=== PATIENT | male | born 1945 | race Caucasian/White ===

== ENCOUNTER 2016-07-28 10:16 | Outpatient (CLI) | payer MEDICARE, OTHER ==
[2016-07-28 11:22] LABS: Anion Gap 14 mmol/L (10-20); BUN (Urea Nitrogen) 39 mg/dL (8.4-25.7); Calc. Creatinine Clearance 0 mL/min (70-130); Calcium 8.6 mg/dL (7.8-10.44); Carbon Dioxide 30 mmol/L (23-31); Chloride 101 mmol/L (98-107); Estimated GFR-MDRD 68; Glucose 224 mg/dL (83-110); Potassium 3.4 mmol/L (3.5-5.1); Sodium 142 mmol/L (136-145)
== END 2016-07-28 10:17 | disposition home or self-care (01) ==
LOC: MADLAB 10:16
PROVIDERS: ATTEND Internal Medicine Cardiovascular Disease
DX: I31.3 Pericardial effusion (noninflammatory) (principal)
CPT/HCPCS: 36415; 80048

== ENCOUNTER 2016-07-29 19:48 | Emergency (ER) | payer MEDICARE, OTHER ==
[~2016-07-29 19:48] MED LIST: Sterile Water Irrigation 1,000 ML BOT ONE
== END 2016-07-29 21:35 | disposition home or self-care (01) ==
LOC: MADERS 19:48
DX: Z46.6 Encounter for fitting and adjustment of urinary device (principal); I10 Essential (primary) hypertension; Z87.891 Personal history of nicotine dependence; Z79.82 Long term (current) use of aspirin; Z79.899 Other long term (current) drug therapy
CPT/HCPCS: 51702; A4217

== ENCOUNTER 2016-07-30 15:14 | Emergency (ER) | payer MEDICARE, OTHER ==
[~2016-07-30 15:14] MED LIST changes: +Iopamidol 370 76% 100 ML VIAL ONE; -Sterile Water Irrigation 1,000 ML BOT ONE; +Sterile Water Irrigation 250 ML BOT ONE
[2016-07-30 15:55] LABS: Bilirubin Negative (Negative); Blood, Urine Large (Negative); Clarity Clear (Clear); Glucose, Urine (Dipstick) Negative (Negative); Leukocyte Large (Negative); Nitrite Negative (Negative); Protein, Urine (Dipstick) Negative (Neg-Trace); Urobilinogen 0.2 mg/dL (0.2-1.0)
[2016-07-30 16:00] LABS: Bacteria/HPF 1+ HPF (None Seen); Squamous Epithelial 0-3 HPF (0-3); WBC/HPF 21-50 HPF (0-3)
[2016-07-30] MEDS ORDERED: Fentanyl 100 MCG/2 ML VIAL ONE (16:07)
[2016-07-30 16:25] LABS: ALT (SGPT) 26 U/L (0-55); AST (SGOT) 11 U/L (5-34); Albumin 3.3 g/dL (3.4-4.8); Alkaline Phosphatase 66 U/L (40-150); Anion Gap 12 mmol/L (10-20); BUN (Urea Nitrogen) 24 mg/dL (8.4-25.7); Bilirubin, Total 0.9 mg/dL (0.2-1.2); CK (CPK) 31 U/L (30-200); Calc. Creatinine Clearance 0 mL/min (70-130); Calcium 9.1 mg/dL (7.8-10.44); Carbon Dioxide 30 mmol/L (23-31); Chloride 101 mmol/L (98-107); Estimated GFR-MDRD Greater than 90; Globulin 2.5 g/dL (2.4-3.5); Glucose 136 mg/dL (83-110); Lipase 28 U/L (8-78); Potassium 3.8 mmol/L (3.5-5.1); Protein, Total 5.8 g/dL (5.8-8.1); Sodium 139 mmol/L (136-145)
[2016-07-30 16:40] LABS: #Lymphocytes 0.5 thou/uL (1.20-3.40); #Monocytes 0.1 thou/uL (0.11-0.59); #Neutrophils 4.1 thou/uL (1.40-6.50); %Basophils 0.6 % (0.0-1.0); %Eosinophils 0.1 % (0.0-10.0); %Lymphocytes 9.6 % (21.0-51.0); %Monocytes 2.9 % (0.0-10.0); %Neutrophils 86.9 % (42.0-75.0); Hemoglobin 17.3 g/dL (14.0-18.0); Mean Corpuscular HGB CONC 34.6 g/dL (32.0-36.0); Mean Corpuscular Hemoglobin 32.9 pg (27.0-31.0); Mean Platelet Volume 6.4 fL (7.4-10.4); PLT Morphology Comment Appears Decreased; Platelet Count 93 thou/uL (130-400); RBC Distribution Width 12.7 % (11.5-14.5); Red Blood Cell (RBC) Count 5.26 mill/uL (4.70-6.10); White Blood Cell (WBC) Count 4.7 thou/uL (4.8-10.8)
--- NOTE | 2016-07-30 17:42 | CT ---
CONTRAST ENHANCED CT IMAGES ABDOMEN AND PELVIS 07/30/16 HISTORY: Abdominal pain. Contrast enhanced CT images of the abdomen and pelvis obtained after administration of IV contrast. There is an area of mass-like density in the posterior aspect of the right lower lobe previously see n on patient's CT from 04/07/16. The liver contains some hypodense lesions previously noted. These are multiple and have not signific antly changed. The spleen is unremarkable. The pericardial effusion noted previously is decreased. T he pancreas and gallbladder, adrenal glands, and kidneys are unremarkable. Peripelvic cyst seen in t he right kidney. There is a ventriculoperitoneal shunt in place. There is an indwelling Sierra cathet er seen. Extensive colonic diverticulosis is seen. There appears to be some chronic thickening of so me of the small bowel loops adjacent to the [employer] shunt. There is mild aneurysmal dilatation of the inf rarenal abdominal aorta measuring up to 2.9 x 2.7 cm in the abdominal aorta at the takeoff of the IM A. In the left lower quadrant where there is extensive diverticulosis noted, there does appear to be so me fat stranding surrounding the sigmoid colon. This may represent some component of diverticulitis in addition to the diverticulosis. No definite evidence of an abscess seen. IMPRESSION: 1. Diverticulosis seen extensively in the descending and sigmoid colon. 2. There may be some inflammatory change surrounding the sigmoid colon possibly representing ch anges of diverticulitis. 3. Continued presence of soft tissue mass in the posterior aspect of the right lower lobe of th e lung concerning for malignancy. 4. Mild aneurysmal dilatation in the infrarenal abdominal aorta. POS: [facility]
[2016-07-30] MEDS ORDERED: Ketorolac Tromethamine 30 MG/ML VIAL ONE (17:48)
== END 2016-07-30 18:15 | disposition home or self-care (01) ==
LOC: MADERS 15:14
DX: K57.92 Diverticulitis of intestine, part unspecified, without perforation or abscess without bleeding (principal); N39.0 Urinary tract infection, site not specified; Z87.891 Personal history of nicotine dependence; Z79.82 Long term (current) use of aspirin; Z79.899 Other long term (current) drug therapy
CPT/HCPCS: 74177; 80053; 81003; 81015; 82550; 83690; 85025; 87077; 87086; 87186; 96374; 96375; 96376; J1885; J3010

== ENCOUNTER 2016-07-31 08:22 | Observation (INO) | payer MEDICARE, OTHER ==
[2016-07-31] MEDS ORDERED: Ketorolac Tromethamine 60 MG/2 ML VIAL ONE (08:35)
[2016-07-31] MEDS ORDERED: HYDROcodone/Acetaminophen 10/325 mg Tablet ONE (08:35)
[2016-07-31] MEDS ORDERED: Cipro 250 MG TAB ONE (09:10)
[2016-07-31] MEDS ORDERED: Ciprofloxacin 500 MG TAB ONE (09:10)
[2016-07-31] MEDS ORDERED: metroNIDAZOLE 250 MG TAB ONE (09:10)
[2016-07-31] MEDS ORDERED: Iopamidol 370 76% 100 ML VIAL ONE (10:08)
[2016-07-31 14:32] VITALS: BMI 30.2
[2016-07-31] MEDS ORDERED: HYDROcodone/Acetaminophen 10/325 mg Tablet PO PRN ×2 (15:26→17:10)
[2016-07-31] MEDS ORDERED: Ventolin HFA Inhaler 60 PUFF INHALER INH PRN (16:30)
[2016-07-31] MEDS ORDERED: Acetaminophen 325 MG TAB PO PRN (16:55)
[2016-07-31] MEDS ORDERED: Ondansetron ODT 4 MG TAB PO PRN (16:55)
[2016-07-31] MEDS ORDERED: metroNIDAZOLE 500 MG in Premix Bag 1 BAG IVPB SCH (17:00)
[2016-07-31] MEDS ORDERED: Ketorolac Tromethamine 30 MG/ML VIAL IVP PRN (17:08)
[2016-07-31] MEDS ORDERED: Mag-Al Plus 1200 MG/1200 MG/120 MG/30 ML UDCUP PO PRN ×2 (17:09→19:51)
[2016-07-31] MEDS ORDERED: Sodium Chloride 0.9% 1,000 ML IV SCH (17:15)
[2016-07-31] MEDS ORDERED: Morphine Sulfate 2 MG/ML SYRINGE ONE ×2 (20:30→21:38)
[2016-07-31 20:32] VITALS: BP 119/77; TEMP 99.4
[2016-07-31] MEDS ORDERED: Morphine Sulfate 2 MG/ML SYRINGE SLOW IVP SCH ×2 (20:45→21:45)
[2016-07-31] MEDS ORDERED: Senokot S 8.6-50 MG TAB PO SCH (21:00)
[2016-07-31] MEDS ORDERED: Dutasteride 0.5 MG CAP PO SCH (21:00)
[2016-07-31] MEDS ORDERED: Silodosin 8 MG CAP PO SCH (21:00)
--- NOTE | 2016-07-31 21:51 | CT ---
CONTRAST ENHANCED CT IMAGES ABDOMEN AND PELVIS 07/31/16 History: Abdominal pain. Comparison made to previous exam from 07/30/16. There is a developing small left sided pleural effusion. There is some areas of air space opacity or density in the medial aspect of the right lower lobe again seen. There is interval development of a large amount of free intraperitoneal air which was not present pr eviously. There is also interval development of some small amounts of free fluid in the right and lo wer pelvis. There is abnormal dilatation and enhancement of the proximal and mid small bowel loops. This may represent inflammatory process. Findings discussed with Dr. Christina Salgado at 8:54 p.m. on 07/31/16. Code CR POS: [facility]
--- NOTE | 2016-08-01 00:01 | HP ---
DATE OF ADMISSION: 07/31/2016 ATTENDING PHYSICIAN: Christina Salgado D.O. PRIMARY CARE PHYSICIAN: Dr. Ashley Alvarado. CHIEF COMPLAINT: Abdominal pain. HISTORY OF PRESENT ILLNESS: This is a pleasant 71-year-old male with history of nonsmall cell lung cancer with known brain metastases and hydrocephalus status post ventricular shunt as well as hypertension, BPH with urinary retention and indwelling Sierra. He was seen today in the emergency room for complaint of abdominal pain. The patient reports the symptoms started earlier this week. The patient was initially seen in the ER on 07/29/2016 for complaint of clogged Sierra catheter. The patient's Sierra catheter was changed in the emergency room by Dr. Pozo and patient was discharged home with a scheduled urology followup. In the interim, the patient woke up on 07/30/2016 complaining of left lower quadrant abdominal pain that was sharp in nature. CT abdomen was done and revealed diverticulosis extensively in the descending and sigmoid colon as well as fat stranding and inflammatory changes of the sigmoid colon suggestive of diverticulitis. CBC was significant for a left shift, but with overall white blood cell count of 4.7. The patient was afebrile and deemed appropriate for outpatient management and therefore discharged home with ciprofloxacin and Flagyl which he started last night as well as Tylenol #3 for pain control. The patient states today that he went home last night with no further abdominal pain until he woke up this morning and reports the pain returned and was not alleviated with the tylenol #3 so returned to the ER. The patient states today he still has not had any fever or difficulty with vomiting or voiding, but does continue with the pain that is worse with movement. He has been tolerating diet and has been supplementing his diet with protein milk shakes. I was called from the emergency room physician for observation admission for failed outpatient treatment of diverticulitis. The patient is undergoing cancer treatment for his lung cancer as well as most recent treatment of his brain metastases and resulting hydrocephalus. He is currently under the care of Dr. Campoverde as his oncologist, Dr. Mead as his radiation oncologist, Dr. Alvarado, his primary care physician whom he saw 2 days ago for unrelated issues. Dr. Cardoza, urologist that he has been following for the urinary retention and Sierra management. The patient has no other complaints at this time. He has been given Toradol IM in the ER this AM and reports his pain is significantly improved. PAST MEDICAL HISTORY: 1. Nonsmall cell lung cancer with brain metastases. 2. Hypertension. 3. Brain metastases with resulting hydrocephalus status post ventricular shunt. 4. Benign prostatic hyperplasia with urinary retention requiring indwelling Sierra catheter. PAST SURGICAL HISTORY: Ventricular shunt was placed in May 2016. MEDICATIONS: 1. Aspirin 81 mg once daily. 2. Tylenol with codeine 300/30 mg 1 tab every 6 hours as needed. 3. ProAir 2 puffs inhaled every 6 hours as needed. 4. Ciprofloxacin 500 mg twice daily. 5. Dutasteride 0.5 mg once nightly. 6. Fish oil 2 tablets p.o. daily 1000 mg capsule. 7. Flonase 2 sprays each nostril daily. 8. Furosemide 40 mg p.o. daily. 9. Metronidazole 500 mg q.8 hours. 10. Omeprazole 20 mg once daily. 11. Zofran 8 mg every 8 hours as needed. 12. Sennoside docusate 1 tablet twice daily. 13. Rapaflo 8 mg capsule once nightly. 14. Anoro Ellipta 62.5/25 mcg one puff inhaled daily. 15. Valsartan/hydrochlorothiazide 160/12.5 mg one p.o. daily. ALLERGIES: Patient is allergic to PENICILLIN. FAMILY HISTORY: Noncontributory. SOCIAL HISTORY: The patient lives at home with his . He is in the process of putting together his advanced directives. He has discussed this with his and would like to remain full code at this time. He is not currently working. He is retired. He no longer smokes. He quit in 1993. Does not drink alcohol or use illicit drug use. REVIEW OF SYSTEMS: GENERAL: Denies any fever, chills, nausea, vomiting, weight gain, or weight loss. HEENT: Denies any headache, otalgia, sore throat, rhinorrhea, blurry vision. CARDIOVASCULAR: Denies any chest pain, shortness of breath or swelling in his legs, palpitations. RESPIRATORY: Denies any shortness of breath. Positive for occasional cough and hoarseness that is chronic for him. Denies any hemoptysis. GASTROINTESTINAL: Positive for abdominal pain. Denies any nausea or vomiting. Positive for infrequent loose stools. Denies any bloody stools. GENITOURINARY: Positive for urinary retention that is related with his catheter. Denies any dysuria. MUSCULOSKELETAL: Denies any myalgias, joint pain, or joint swelling. ENDOCRINOLOGIC: Denies any easy bruising or easy bleeding. NEUROLOGIC: Denies any syncope or seizures. PHYSICAL EXAMINATION: VITAL SIGNS: Temperature is 97.2, pulse is 86, respirations 20, O2 saturations 96% on room air, blood pressure is 108/56. GENERAL: The patient is alert and oriented x3. He is in no acute distress. He is cooperative. He is answering questions appropriately. He is resting comfortably in the bed at this time after pain medication that was administered in the ER. HEENT: Normocephalic and atraumatic, Pupils are equally round and reactive to light. Extraocular movements are intact. Oropharynx is moist without erythema or exudates. NECK: Supple without thyromegaly or lymphadenopathy. CARDIOVASCULAR: Heart is regular rate and rhythm with no murmurs. RESPIRATIONS: Positive for mildly diminished aeration bilaterally. Negative for any distress, wheezing, rales or rhonchi. GASTROINTESTINAL: Positive for mild distension of the abdomen. Positive for left lower quadrant tenderness to palpation. Negative for rebound or guarding. ABDOMEN: Positive for bowel sounds in all 4 quadrants. GENITOURINARY: Sierra catheter appreciated in place. MUSCULOSKELETAL: Strength is 5/5 in all four extremities. EXTREMITIES: Negative for clubbing, cyanosis or edema. NEUROLOGIC: Nonfocal exam. The patient was not found to have any focal deficits. LABORATORY AND IMAGING DATA: On 07/30/2016, CBC was significant for white blood cell count of 4.7, hemoglobin 17.3, hematocrit 49.9, platelets 93, neutrophils 86.9. CMP, sodium is 139, potassium 3.8, chloride 101, bicarbonate 30, BUN 24, creatinine 0.81, glucose is 136, total bilirubin 0.9, AST 11, ALT is 26, alkaline phosphatase 66, albumin is low at 3.3. Lipase is normal at 28. Urinalysis significant for large blood, which is chronic for him, large leukocyte esterase. CT scan done on 07/30/2016 shows diverticulosis extensively in the descending and sigmoid colon as well as inflammatory changes around the sigmoid colon possibly representing changes of diverticulitis, incidental finding of soft tissue mass in the posterior aspect of the right lower lobe concerning for malignancy which is known for patient as well as mild aneurysmal dilatation of the infrarenal abdominal aorta. ASSESSMENT AND PLAN: This is a 71-year-old male with recent diagnosis of acute diverticulitis of the sigmoid colon that has failed outpatient management. The patient has remained afebrile and is quite comfortable after toradol given in the ER. We will admit for observation and advance his pain regimen with [place] every 6 hours as needed which he did well with in the ER yesterday. He will be started on IV antibiotics with Cipro and Flagyl to be continued until patient has had improvement in his pain. He has been given a liquid diet for now and we will advance this as tolerated. His home medications have been continued. Lengthy discussion was had with the patient and in the ER that if he has any signs of worsening abdominal pain or treatment failure then we will transfer to [facility]. The patient and his does prefer to stay here in [place]. Anticipate discharge in less than 48 hours with anticipate continued course of antibiotics and GI/PCP outpatient follow up. Code status is FULL per patient and wishes. DVT prophylaxis with SCDs. MTDD
[2016-08-01] MEDS ORDERED: Fish Oil 1,000 MG CAP PO SCH (09:00)
[2016-08-01] MEDS ORDERED: Aspirin 81 mg Enteric Coated Tablet PO SCH (09:00)
[2016-08-01] MEDS ORDERED: Non-Formulary Item 1 EACH (Valsartan/Hydrochlorothiazide [Valsartan-Hctz 160-12.5 Mg Tab] PO SCH (09:00)
[2016-08-01] MEDS ORDERED: VILANTEROL INH SCH (09:00)
[2016-08-01] MEDS ORDERED: Valsartan 80 MG TAB PO SCH (09:00)
[2016-08-01] MEDS ORDERED: Hydrochlorothiazide 25 MG TAB PO SCH (09:00)
[2016-08-01] MEDS ORDERED: Furosemide 40 MG TAB PO SCH (09:00)
[2016-08-01] MEDS ORDERED: UMECLIDINIUM INH SCH (09:00)
== END 2016-07-31 21:40 | disposition short-term general hospital (02) ==
LOC: MADERS 08:22 → MADMS 14:16
PROVIDERS: ADMIT Family Medicine; ATTEND Family Medicine
DX: K57.32 Diverticulitis of large intestine without perforation or abscess without bleeding (principal); C34.90 Malignant neoplasm of unspecified part of unspecified bronchus or lung; C79.31 Secondary malignant neoplasm of brain; G91.8 Other hydrocephalus; Z98.2 Presence of cerebrospinal fluid drainage device; N40.1 Benign prostatic hyperplasia with lower urinary tract symptoms; R33.8 Other retention of urine; Z79.82 Long term (current) use of aspirin; Z79.899 Other long term (current) drug therapy; I10 Essential (primary) hypertension; Z87.891 Personal history of nicotine dependence
CPT/HCPCS: 74177; 96372; 96374; 96375; 96376; A4216; J1885; J2270; J7050